=== PATIENT | female | born 1960 | race African-American/Black ===

== ENCOUNTER 2018-03-23 07:30 | Inpatient (IN) | payer OTHER ==
[2018-03-23] MEDS ORDERED: ACETYLCYSTEINE IV ×2 (07:39→08:00)
[2018-03-23] MEDS ORDERED: DEXTROSE 5% IV ×2 (07:39→08:00)
[2018-03-23] MEDS ORDERED: ACETYLCYSTEINE IVPB (08:00)
[2018-03-23] MEDS ORDERED: DEXTROSE 5% IVPB (08:00)
[2018-03-23 08:04] LABS: ADD MAN DIFF? NO
[2018-03-23 08:05] LABS: BASOPHIL # 0.1 10^3/ul (0.0-0.1); BASOPHILS % 0.9 % (0.0-2.0); EOSINOPHILS # 0.1 10^3/ul (0.0-0.5); EOSINOPHILS % 0.8 % (0.0-7.0); HEMATOCRIT 37.9 % (37.0-47.0); HEMOGLOBIN 12.6 g/dl (12.0-16.0); LYMPHOCYTES # 2.6 10^3/ul (0.8-2.9); LYMPHOCYTES % 32.5 % (15.0-51.0); MEAN CORPUSCULAR HEMOGLOBIN 27.3 pg (29.0-33.0); MEAN CORPUSCULAR HGB CONC 33.2 g/dl (32.0-37.0); MEAN PLATELET VOLUME 9.7 fl (7.4-10.4); MONOCYTE # 0.4 10^3/ul (0.3-0.9); MONOCYTES % 4.4 % (0.0-11.0); NEUTROPHIL # 4.9 10^3/ul (1.6-7.5); NEUTROPHILS % 60.9 % (39.0-77.0); PLATELET COUNT 331 10^3/UL (140-415); RED BLOOD COUNT 4.62 10^6/ul (4.20-5.40); RED CELL DISTRIBUTION WIDTH 14.7 % (11.5-14.5)
[2018-03-23] MEDS: CHARCOAL (AQ) 50 GM/240 ML BTL PO (08:08)
[2018-03-23] MEDS: ONDANSETRON 4 MG INJ IV (08:08)
[2018-03-23 08:24] LABS: ALANINE AMINOTRANSFERASE 45 IU/L (13-69); ALBUMIN 5.3 g/dl (3.3-4.9); ALBUMIN/GLOBULIN RATIO 0.98; ALKALINE PHOSPHATASE 100 IU/L (42-121); ANION GAP 19 (8-16); ASPARTATE AMINO TRANSFERASE 31 IU/L (15-46); BILIRUBIN,INDIRECT 0.3 mg/dl (0-1.1); BILIRUBIN,TOTAL 0.3 mg/dl (0.2-1.3); BLOOD UREA NITROGEN 14 mg/dl (7-20); CALCIUM 10.5 mg/dl (8.4-10.2); CARBON DIOXIDE 22 mmol/L (21-31); CHLORIDE 97 mmol/L (97-110); CREATININE 0.81 mg/dl (0.44-1.00); GLUCOSE 240 mg/dl (70-220); POTASSIUM 3.7 mmol/L (3.5-5.1); SODIUM 134 mmol/L (135-144); TOTAL PROTEIN 10.7 g/dl (6.1-8.1)
[2018-03-23] MEDS: KETOROLAC 15 MG INJ IV (08:31)
[2018-03-23] MEDS: ACETYLCYSTEINE IV ×3 (08:44→14:50)
[2018-03-23] MEDS: DEXTROSE 5% IV ×3 (08:44→14:50)
[2018-03-23 08:47] LABS: ETHANOL < 10.0 mg/dl; SALICYLATE < 1.0 mg/dl (5.0-30.0)
[2018-03-23] MEDS ORDERED: NACL 0.9% 3 ML SYG IV (11:00)
[2018-03-23] MEDS: CLOPIDOGREL 75 MG TAB PO (11:27)
[2018-03-23] MEDS: morphine 2 MG INJ IV (11:28)
[2018-03-23] MEDS ORDERED: GLUCOSE GEL 15 GRAM TUBE PO ×2 (16:00)
[2018-03-23] MEDS ORDERED: GLUCAGON 1 MG INJ IM (16:00)
[2018-03-23] MEDS ORDERED: DEXTROSE 50% 50 ML SYRINGE IV ×2 (16:00)
[2018-03-23] MEDS ORDERED: GLUCOSE GEL 15 GRAM TUBE BUCCAL (16:00)
[2018-03-23] MEDS ORDERED: CALCIUM CARBONATE 500 MG CHEW TAB PO ×2 (18:00)
[2018-03-23] MEDS: INSULIN ASPART [NOVOLOG] 3 ML PEN SC (18:12)
[2018-03-23 18:35] LABS: ALANINE AMINOTRANSFERASE 25 IU/L (13-69); ALBUMIN 4.1 g/dl (3.3-4.9); ALBUMIN/GLOBULIN RATIO 1.24; ALKALINE PHOSPHATASE 41 IU/L (42-121); ANION GAP 18 (8-16); ASPARTATE AMINO TRANSFERASE 17 IU/L (15-46); BILIRUBIN,INDIRECT 0.4 mg/dl (0-1.1); BILIRUBIN,TOTAL 0.4 mg/dl (0.2-1.3); BLOOD UREA NITROGEN 16 mg/dl (7-20); CALCIUM 9.4 mg/dl (8.4-10.2); CARBON DIOXIDE 21 mmol/L (21-31); CHLORIDE 95 mmol/L (97-110); CREATININE 0.97 mg/dl (0.44-1.00); GLUCOSE 208 mg/dl (70-220); INR 1.03; POTASSIUM 3.3 mmol/L (3.5-5.1); PROTIME 13.6 Sec (11.9-14.9); PT RATIO 1.1; SODIUM 131 mmol/L (135-144); TOTAL PROTEIN 7.4 g/dl (6.1-8.1)
[2018-03-23 18:40] LABS: ACETAMINOPHEN < 10.0 ug/ml (10.0-30.0)
[2018-03-23] MEDS: SOD CHLORIDE 0.9% 1,000 ML IV (19:38)
[2018-03-23] MEDS: METOPROLOL 25 MG TAB PO (20:46)
[2018-03-23] MEDS: SUMATRIPTAN 50 MG TAB PO (20:46)
[2018-03-23] MEDS: ATORVASTATIN 80 MG TAB PO (20:46)
[2018-03-24] MEDS: SUMATRIPTAN 50 MG TAB PO ×3 (01:15→08:54)
[2018-03-24] MEDS: morphine 2 MG INJ IV (04:32)
[2018-03-24 05:30] LABS: ADD MAN DIFF? NO
[2018-03-24 05:37] LABS: WHITE BLOOD COUNT 6.9 10^3/ul (4.8-10.8)
[2018-03-24 05:37] LABS: BASOPHIL # 0.1 10^3/ul (0.0-0.1); BASOPHILS % 0.7 % (0.0-2.0); EOSINOPHILS # 0.1 10^3/ul (0.0-0.5); EOSINOPHILS % 1.3 % (0.0-7.0); HEMATOCRIT 29.6 % (37.0-47.0); HEMOGLOBIN 9.9 g/dl (12.0-16.0); LYMPHOCYTES # 2.7 10^3/ul (0.8-2.9); MEAN CORPUSCULAR HEMOGLOBIN 26.8 pg (29.0-33.0); MEAN CORPUSCULAR HGB CONC 33.4 g/dl (32.0-37.0); MEAN CORPUSCULAR VOLUME 80.2 fl (82.0-101.0); MEAN PLATELET VOLUME 9.9 fl (7.4-10.4); MONOCYTE # 0.6 10^3/ul (0.3-0.9); MONOCYTES % 8.6 % (0.0-11.0); NEUTROPHIL # 3.4 10^3/ul (1.6-7.5); PLATELET COUNT 261 10^3/UL (140-415); RED BLOOD COUNT 3.69 10^6/ul (4.20-5.40); RED CELL DISTRIBUTION WIDTH 14.6 % (11.5-14.5)
[2018-03-24 05:46] LABS: HEMOGLOBIN A1C 7.6 % (0-5.9)
[2018-03-24 05:53] LABS: ALANINE AMINOTRANSFERASE 30 IU/L (13-69); ALBUMIN 3.9 g/dl (3.3-4.9); ALBUMIN/GLOBULIN RATIO 1.21; ALKALINE PHOSPHATASE 45 IU/L (42-121); ANION GAP 17 (8-16); ASPARTATE AMINO TRANSFERASE 27 IU/L (15-46); BILIRUBIN,INDIRECT 0.4 mg/dl (0-1.1); BILIRUBIN,TOTAL 0.4 mg/dl (0.2-1.3); BLOOD UREA NITROGEN 17 mg/dl (7-20); CALCIUM 9.5 mg/dl (8.4-10.2); CARBON DIOXIDE 21 mmol/L (21-31); CHLORIDE 100 mmol/L (97-110); GLUCOSE 183 mg/dl (70-220); POTASSIUM 3.4 mmol/L (3.5-5.1); SODIUM 135 mmol/L (135-144); TOTAL PROTEIN 7.1 g/dl (6.1-8.1)
[2018-03-24 05:54] LABS: INR 0.99; PROTIME 13.2 Sec (11.9-14.9)
[2018-03-24] MEDS: INSULIN ASPART [NOVOLOG] 3 ML PEN SC ×3 (08:12→12:43)
[2018-03-24] MEDS: CLOPIDOGREL 75 MG TAB PO (08:54)
[2018-03-24] MEDS: METOPROLOL 25 MG TAB PO (09:00)
[2018-03-24] MEDS: ENOXAPARIN 30 MG/0.3 ML SYG SC (09:17)
[2018-03-25] MEDS ORDERED: ACCU-CHEK XX (02:00)
== END 2018-03-24 14:27 | disposition home or self-care (01) | DRG 918 ==
LOC: E/R 07:30 → ICU 12:32
PROVIDERS: Internal Medicine
DX: T39.1X1A Poisoning by 4-Aminophenol derivatives, accidental (unintentional), initial encounter (principal); G43.909 Migraine, unspecified, not intractable, without status migrainosus; I25.10 Atherosclerotic heart disease of native coronary artery without angina pectoris; F17.210 Nicotine dependence, cigarettes, uncomplicated; I10 Essential (primary) hypertension; E78.5 Hyperlipidemia, unspecified; E11.9 Type 2 diabetes mellitus without complications; F32.9 Major depressive disorder, single episode, unspecified; Y92.019 Unspecified place in single-family (private) house as the place of occurrence of the external cause; Z79.4 Long term (current) use of insulin; Z95.5 Presence of coronary angioplasty implant and graft; Z86.73 Personal history of transient ischemic attack (TIA), and cerebral infarction without residual deficits
CPT/HCPCS: 36415; 70450; 71045; 80053; 80307; 82962; 83036; 85025; 85610; 87081; 93005; 96365; 96366; 96375; 99291-25

== ENCOUNTER 2018-07-03 14:29 | Inpatient (IN) | payer OTHER ==
[2018-07-03] MEDS: SOD CHLORIDE 0.9% 1,000 ML IV ×2 (15:30→21:19)
[2018-07-03 15:32] LABS: ADD MAN DIFF? NO
[2018-07-03 15:35] LABS: WHITE BLOOD COUNT 8.9 10^3/ul (4.8-10.8)
[2018-07-03 15:35] LABS: BASOPHIL # 0.1 10^3/ul (0.0-0.1); BASOPHILS % 0.6 % (0.0-2.0); EOSINOPHILS % 0.3 % (0.0-7.0); HEMATOCRIT 35.4 % (37.0-47.0); HEMOGLOBIN 11.7 g/dl (12.0-16.0); LYMPHOCYTES # 1.7 10^3/ul (0.8-2.9); LYMPHOCYTES % 19.1 % (15.0-51.0); MEAN CORPUSCULAR HEMOGLOBIN 27.1 pg (29.0-33.0); MEAN CORPUSCULAR HGB CONC 33.1 g/dl (32.0-37.0); MEAN CORPUSCULAR VOLUME 81.9 fl (82.0-101.0); MEAN PLATELET VOLUME 9.8 fl (7.4-10.4); MONOCYTES % 11.6 % (0.0-11.0); NEUTROPHIL # 6.1 10^3/ul (1.6-7.5); PLATELET COUNT 187 10^3/UL (140-415); RED BLOOD COUNT 4.32 10^6/ul (4.20-5.40)
[2018-07-03] MEDS: METOCLOPRAMIDE 10 MG INJ IV (15:50)
[2018-07-03] MEDS: KETOROLAC 30 MG INJ IV (15:50)
[2018-07-03 15:55] LABS: ANION GAP 15 (5-13); BLOOD UREA NITROGEN 23 mg/dl (7-20); CALCIUM 9.2 mg/dl (8.4-10.2); CARBON DIOXIDE 20 mmol/L (21-31); CHLORIDE 106 mmol/L (97-110); CREATININE 1.66 mg/dl (0.44-1.00); Estimated GFR 38 mL/min (>60); GLUCOSE 125 mg/dl (70-220); POTASSIUM 4.8 mmol/L (3.5-5.1); SODIUM 141 mmol/L (135-144)
[2018-07-03 16:07] LABS: TROPONIN-I 0.036 ng/ml (0.000-0.120)
[2018-07-03] MEDS ORDERED: ONDANSETRON 4 MG INJ IV ×2 (18:30)
[2018-07-03] MEDS ORDERED: NACL 0.9% 3 ML SYG IV (18:30)
[2018-07-03] MEDS ORDERED: ACETAMINOPHEN 325 MG TAB PO ×2 (18:30)
[2018-07-03] MEDS ORDERED: DOCUSATE SODIUM 100 MG CAP PO (18:30)
[2018-07-03] MEDS ORDERED: GLUCOSE GEL 15 GRAM TUBE BUCCAL (19:00)
[2018-07-03] MEDS ORDERED: DEXTROSE 50% 50 ML SYRINGE IV ×2 (19:00)
[2018-07-03] MEDS ORDERED: GLUCAGON 1 MG INJ IM (19:00)
[2018-07-03] MEDS ORDERED: GLUCOSE GEL 15 GRAM TUBE PO ×2 (19:00)
[2018-07-03] MEDS: INSULIN ASPART [NOVOLOG] 3 ML PEN SC (21:00)
[2018-07-03] MEDS: ATORVASTATIN 80 MG TAB PO (21:19)
[2018-07-03] MEDS: traZODone 50 MG TAB PO (21:19)
[2018-07-03] MEDS: GABAPENTIN 100 MG CAP PO (21:19)
[2018-07-03] MEDS: HYDROCODONE/APAP (5/325) TAB PO (21:19)
[2018-07-03] MEDS: METOPROLOL 25 MG TAB PO (21:20)
[2018-07-03] MEDS: INSULIN GLARGINE [LANTus] (100 UNITS/ML) SYG SC (21:50)
[2018-07-04] MEDS: ACCU-CHEK XX (02:06)
[2018-07-04] MEDS: SOD CHLORIDE 0.9% 1,000 ML IV ×5 (02:26→22:36)
[2018-07-04 06:41] LABS: ADD MAN DIFF? NO
[2018-07-04 06:43] LABS: BASOPHILS % 0.8 % (0.0-2.0); EOSINOPHILS # 0.1 10^3/ul (0.0-0.5); EOSINOPHILS % 2.4 % (0.0-7.0); HEMOGLOBIN 9.3 g/dl (12.0-16.0); LYMPHOCYTES # 2.3 10^3/ul (0.8-2.9); LYMPHOCYTES % 42.7 % (15.0-51.0); MEAN CORPUSCULAR HEMOGLOBIN 27.1 pg (29.0-33.0); MEAN CORPUSCULAR HGB CONC 32.1 g/dl (32.0-37.0); MEAN CORPUSCULAR VOLUME 84.5 fl (82.0-101.0); MEAN PLATELET VOLUME 10.2 fl (7.4-10.4); MONOCYTE # 0.6 10^3/ul (0.3-0.9); MONOCYTES % 11.7 % (0.0-11.0); NEUTROPHIL # 2.2 10^3/ul (1.6-7.5); PLATELET COUNT 135 10^3/UL (140-415); RED BLOOD COUNT 3.43 10^6/ul (4.20-5.40); RED CELL DISTRIBUTION WIDTH 13.1 % (11.5-14.5)
[2018-07-04 06:43] LABS: WHITE BLOOD COUNT 5.3 10^3/ul (4.8-10.8)
[2018-07-04 07:18] LABS: ANION GAP 10 (5-13); BLOOD UREA NITROGEN 34 mg/dl (7-20); CARBON DIOXIDE 21 mmol/L (21-31); CHLORIDE 109 mmol/L (97-110); CREATININE 1.72 mg/dl (0.44-1.00); Estimated GFR 37 mL/min (>60); GLUCOSE 186 mg/dl (70-220); MAGNESIUM 1.8 mg/dl (1.7-2.5); PHOSPHORUS 4.5 mg/dl (2.5-4.9); POTASSIUM 4.1 mmol/L (3.5-5.1); SODIUM 140 mmol/L (135-144)
[2018-07-04 07:20] LABS: HEMOGLOBIN A1C 7.6 % (0-5.9)
[2018-07-04] MEDS: INSULIN ASPART [NOVOLOG] 3 ML PEN SC ×7 (08:02→21:00)
[2018-07-04] MEDS: CLOPIDOGREL 75 MG TAB PO (08:43)
[2018-07-04] MEDS: METOPROLOL 25 MG TAB PO ×2 (08:43→21:16)
[2018-07-04] MEDS: SERTRALINE 50 MG TAB PO (08:43)
[2018-07-04] MEDS: HYDROCODONE/APAP (5/325) TAB PO ×3 (08:43→20:01)
[2018-07-04] MEDS: ASPIRIN (EC) 325 MG TAB PO (08:44)
[2018-07-04] MEDS: GABAPENTIN 100 MG CAP PO ×3 (08:44→21:14)
[2018-07-04] MEDS: INFLUENZA VIRUS VACCINE 0.5 ML (DISPENSING) IM* (10:32)
[2018-07-04] MEDS: morphine 2 MG INJ IV ×3 (11:51→22:38)
[2018-07-04 19:12] LABS: ADD UMIC NO; UR ASCORBIC ACID NEGATIVE (NEGATIVE); UR BILIRUBIN (Dip) NEGATIVE (NEGATIVE); UR BLOOD (Dip) NEGATIVE (NEGATIVE); UR CLARITY CLEAR (CLEAR); UR COLOR STRAW (YELLOW); UR GLUCOSE (Dip) NEGATIVE (NEGATIVE); UR KETONES (Dip) NEGATIVE (NEGATIVE); UR LEUKOCYTE ESTERASE (Dip) NEGATIVE Leu/ul (NEGATIVE); UR NITRITE (Dip) NEGATIVE (NEGATIVE); UR SPECIFIC GRAVITY (Dip) 1.011 (1.003-1.030); UR TOTAL PROTEIN (Dip) NEGATIVE (NEGATIVE); UR UROBILINOGEN (Dip) NEGATIVE (NEGATIVE)
[2018-07-04 19:29] LABS: CREATININE,URINE RANDOM 46.26 mg/dl (20-320)
[2018-07-04 19:29] LABS: SODIUM,URINE RANDOM 94 mmol/L (30-90)
[2018-07-04] MEDS: traZODone 50 MG TAB PO (20:00)
[2018-07-04] MEDS: ATORVASTATIN 80 MG TAB PO (21:14)
[2018-07-04] MEDS: ZOLPIDEM 5 MG TAB PO (21:19)
[2018-07-04] MEDS: INSULIN GLARGINE [LANTus] (100 UNITS/ML) SYG SC (21:20)
[2018-07-04] MEDS: SUMATRIPTAN 50 MG TAB PO (22:26)
[2018-07-05] MEDS: ACCU-CHEK XX (02:00)
[2018-07-05] MEDS: SOD CHLORIDE 0.9% 1,000 ML IV ×2 (02:26→05:46)
[2018-07-05 05:33] LABS: ADD MAN DIFF? NO
[2018-07-05 05:39] LABS: BASOPHIL # 0.1 10^3/ul (0.0-0.1); BASOPHILS % 0.7 % (0.0-2.0); EOSINOPHILS # 0.2 10^3/ul (0.0-0.5); EOSINOPHILS % 2.1 % (0.0-7.0); HEMATOCRIT 27.7 % (37.0-47.0); HEMOGLOBIN 9.1 g/dl (12.0-16.0); LYMPHOCYTES # 2.4 10^3/ul (0.8-2.9); LYMPHOCYTES % 25.8 % (15.0-51.0); MEAN CORPUSCULAR HEMOGLOBIN 27.3 pg (29.0-33.0); MEAN CORPUSCULAR HGB CONC 32.9 g/dl (32.0-37.0); MEAN CORPUSCULAR VOLUME 83.2 fl (82.0-101.0); MEAN PLATELET VOLUME 10.4 fl (7.4-10.4); MONOCYTE # 0.8 10^3/ul (0.3-0.9); MONOCYTES % 8.6 % (0.0-11.0); NEUTROPHIL # 5.7 10^3/ul (1.6-7.5); NEUTROPHILS % 62.1 % (39.0-77.0); PLATELET COUNT 140 10^3/UL (140-415); RED BLOOD COUNT 3.33 10^6/ul (4.20-5.40)
[2018-07-05 05:39] LABS: WHITE BLOOD COUNT 9.2 10^3/ul (4.8-10.8)
[2018-07-05] MEDS: SUMATRIPTAN 50 MG TAB PO (05:49)
[2018-07-05] MEDS: HYDROCODONE/APAP (5/325) TAB PO (05:50)
[2018-07-05 06:07] LABS: ANION GAP 9 (5-13); BLOOD UREA NITROGEN 22 mg/dl (7-20); CALCIUM 8.8 mg/dl (8.4-10.2); CARBON DIOXIDE 21 mmol/L (21-31); CHLORIDE 109 mmol/L (97-110); CREATININE 0.97 mg/dl (0.44-1.00); Estimated GFR > 60 mL/min (>60); GLUCOSE 130 mg/dl (70-220); MAGNESIUM 1.6 mg/dl (1.7-2.5); POTASSIUM 4.4 mmol/L (3.5-5.1); SODIUM 139 mmol/L (135-144)
[2018-07-05] MEDS: INSULIN ASPART [NOVOLOG] 3 ML PEN SC ×4 (07:50→12:52)
[2018-07-05] MEDS ORDERED: MAGNESIUM SULFATE 2 GM/50 ML 50 ML IVPB (08:00)
[2018-07-05] MEDS: ASPIRIN (EC) 325 MG TAB PO (08:52)
[2018-07-05] MEDS: GABAPENTIN 100 MG CAP PO ×2 (08:52→14:38)
[2018-07-05] MEDS: METOPROLOL 25 MG TAB PO (08:52)
[2018-07-05] MEDS: CLOPIDOGREL 75 MG TAB PO (08:53)
[2018-07-05] MEDS: SERTRALINE 50 MG TAB PO (08:53)
[2018-07-05] MEDS: morphine 2 MG INJ IV (09:55)
[2018-07-05] MEDS: MAGNESIUM OXIDE 400 MG TAB PO (11:23)
[2018-07-05] MEDS: MAGNESIUM SULFATE 1 GM/D5W 100 ML IVPB ×2 (11:24→12:50)
[2018-07-06 15:17] LABS: CREATININE, RANDOM URINE 47 mg/dL (20-275); MICROALBUMIN 0.2 mg/dL; MICROALBUMIN/CREATININE RATIO 4 (<30)
== END 2018-07-05 16:00 | disposition home or self-care (01) | DRG 315 ==
LOC: E/R 14:29 → TEL 18:06 → MS1 07-04 13:40
DX: I95.9 Hypotension, unspecified (principal); N17.9 Acute kidney failure, unspecified; E86.0 Dehydration; D63.8 Anemia in other chronic diseases classified elsewhere; Z86.73 Personal history of transient ischemic attack (TIA), and cerebral infarction without residual deficits; I10 Essential (primary) hypertension; F32.9 Major depressive disorder, single episode, unspecified
CPT/HCPCS: 36415; 71045; 76775; 80048; 81003; 82043; 82962; 83036; 83735; 84100; 84155; 84300; 84484; 85025; 90686; 93005; 96374; 96375; 99291-25; G0378

== ENCOUNTER 2018-07-07 14:32 | Inpatient (IN) | payer OTHER ==
[2018-07-07 15:08] LABS: ADD MAN DIFF? NO
[2018-07-07 15:09] LABS: BASOPHIL # 0.1 10^3/ul (0.0-0.1); BASOPHILS % 0.7 % (0.0-2.0); EOSINOPHILS # 0.1 10^3/ul (0.0-0.5); EOSINOPHILS % 1.6 % (0.0-7.0); HEMATOCRIT 34.3 % (37.0-47.0); HEMOGLOBIN 11.3 g/dl (12.0-16.0); LYMPHOCYTES % 34.4 % (15.0-51.0); MEAN CORPUSCULAR HEMOGLOBIN 27.1 pg (29.0-33.0); MEAN CORPUSCULAR HGB CONC 32.9 g/dl (32.0-37.0); MEAN CORPUSCULAR VOLUME 82.3 fl (82.0-101.0); MEAN PLATELET VOLUME 10.1 fl (7.4-10.4); MONOCYTE # 0.9 10^3/ul (0.3-0.9); MONOCYTES % 10.1 % (0.0-11.0); NEUTROPHIL # 4.5 10^3/ul (1.6-7.5); NEUTROPHILS % 52.7 % (39.0-77.0); PLATELET COUNT 203 10^3/UL (140-415); RED BLOOD COUNT 4.17 10^6/ul (4.20-5.40); RED CELL DISTRIBUTION WIDTH 12.9 % (11.5-14.5)
[2018-07-07 15:09] LABS: WHITE BLOOD COUNT 8.6 10^3/ul (4.8-10.8)
[2018-07-07] MEDS: SOD CHLORIDE 0.9% 1,000 ML IV ×2 (15:11→18:53)
[2018-07-07] MEDS ORDERED: DIPHENHYDRAMINE 50 MG INJ (15:24)
[2018-07-07] MEDS ORDERED: METOCLOPRAMIDE 10 MG INJ (15:24)
[2018-07-07] MEDS: DIPHENHYDRAMINE 50 MG INJ IV (15:26)
[2018-07-07] MEDS: METOCLOPRAMIDE 10 MG INJ IV (15:26)
[2018-07-07 15:33] LABS: ALANINE AMINOTRANSFERASE 12 IU/L (13-69); ALBUMIN 4.3 g/dl (3.3-4.9); ALBUMIN/GLOBULIN RATIO 1.22; ALKALINE PHOSPHATASE 72 IU/L (42-121); ANION GAP 17 (5-13); ASPARTATE AMINO TRANSFERASE 26 IU/L (15-46); BILIRUBIN,INDIRECT 0.3 mg/dl (0-1.1); BILIRUBIN,TOTAL 0.3 mg/dl (0.2-1.3); BLOOD UREA NITROGEN 21 mg/dl (7-20); CALCIUM 9.4 mg/dl (8.4-10.2); CARBON DIOXIDE 19 mmol/L (21-31); CHLORIDE 105 mmol/L (97-110); CREATININE 1.27 mg/dl (0.44-1.00); Estimated GFR 52 mL/min (>60); GLUCOSE 121 mg/dl (70-220); LIPASE 180 U/L (23-300); POTASSIUM 3.9 mmol/L (3.5-5.1); SODIUM 141 mmol/L (135-144); TOTAL PROTEIN 7.8 g/dl (6.1-8.1)
[2018-07-07 15:44] LABS: TROPONIN-I 0.016 ng/ml (0.000-0.120)
[2018-07-07] MEDS ORDERED: NITROGLYCERIN (SL) 0.4 MG TAB SL (18:30)
[2018-07-07] MEDS ORDERED: DOCUSATE SODIUM 100 MG CAP PO (18:30)
[2018-07-07] MEDS ORDERED: LORAZEPAM 2 MG INJ IV (18:30)
[2018-07-07] MEDS ORDERED: NACL 0.9% 3 ML SYG IV (18:30)
[2018-07-07] MEDS ORDERED: ALBUTEROL/IPRATROPIUM (NEB) 3 ML AMP HHN (18:30)
[2018-07-07] MEDS ORDERED: ACETAMINOPHEN 325 MG TAB PO ×2 (18:30)
[2018-07-07] MEDS ORDERED: NA PHOSPHATE/BIPHOS 133 ML ENEMA PR (18:30)
[2018-07-07] MEDS ORDERED: ONDANSETRON 4 MG INJ IV ×2 (18:30)
[2018-07-07] MEDS ORDERED: MAGNESIUM HYDROXIDE 30ML CUP PO (18:30)
[2018-07-07 18:48] LABS: FREE T4 (FREE THYROXINE) 1.23 ng/dl (0.64-1.79)
[2018-07-07] MEDS: morphine 2 MG INJ IV (18:53)
[2018-07-07] MEDS: traZODone 100 MG TAB PO (20:43)
[2018-07-07] MEDS: SERTRALINE 50 MG TAB PO (20:43)
[2018-07-07] MEDS: NICOTINE (14 MG/24 HR) PATCH TRANSDERM (20:43)
[2018-07-07] MEDS: ATORVASTATIN 80 MG TAB PO (20:43)
[2018-07-07] MEDS: METOPROLOL 25 MG TAB PO (20:44)
[2018-07-08] MEDS: HYDROCODONE/APAP (5/325) TAB PO ×4 (02:43→21:12)
[2018-07-08] MEDS: SOD CHLORIDE 0.9% 1,000 ML IV ×3 (05:12→21:11)
[2018-07-08 06:19] LABS: ADD MAN DIFF? NO
[2018-07-08 06:27] LABS: WHITE BLOOD COUNT 6.8 10^3/ul (4.8-10.8)
[2018-07-08 06:28] LABS: BASOPHIL # 0.1 10^3/ul (0.0-0.1); BASOPHILS % 0.7 % (0.0-2.0); EOSINOPHILS # 0.2 10^3/ul (0.0-0.5); EOSINOPHILS % 2.2 % (0.0-7.0); HEMOGLOBIN 9.3 g/dl (12.0-16.0); LYMPHOCYTES # 3.1 10^3/ul (0.8-2.9); LYMPHOCYTES % 45.6 % (15.0-51.0); MEAN CORPUSCULAR HGB CONC 32.1 g/dl (32.0-37.0); MEAN CORPUSCULAR VOLUME 84.1 fl (82.0-101.0); MEAN PLATELET VOLUME 10.3 fl (7.4-10.4); MONOCYTE # 0.9 10^3/ul (0.3-0.9); MONOCYTES % 12.6 % (0.0-11.0); NEUTROPHIL # 2.6 10^3/ul (1.6-7.5); NEUTROPHILS % 38.5 % (39.0-77.0); PLATELET COUNT 182 10^3/UL (140-415); RED BLOOD COUNT 3.45 10^6/ul (4.20-5.40)
[2018-07-08 06:52] LABS: CHOLESTEROL 146 mg/dl (100-200)
[2018-07-08 06:52] LABS: CHOL/HDL RATIO 4.1 RATIO; HDL CHOLESTEROL 35 mg/dl (37-92); LDL CHOLESTEROL,CALCULATED 84 mg/dl; TRIGLYCERIDES 135 mg/dl (0-149)
[2018-07-08 07:08] LABS: ANION GAP 9 (5-13); BLOOD UREA NITROGEN 27 mg/dl (7-20); CALCIUM 8.4 mg/dl (8.4-10.2); CARBON DIOXIDE 22 mmol/L (21-31); CHLORIDE 109 mmol/L (97-110); CREATININE 1.16 mg/dl (0.44-1.00); Estimated GFR 58 mL/min (>60); GLUCOSE 146 mg/dl (70-220); POTASSIUM 4.7 mmol/L (3.5-5.1); SODIUM 140 mmol/L (135-144)
[2018-07-08 07:25] LABS: HEMOGLOBIN A1C 7.5 % (0-5.9)
[2018-07-08] MEDS: SERTRALINE 50 MG TAB PO (08:44)
[2018-07-08] MEDS: NICOTINE (14 MG/24 HR) PATCH TRANSDERM (08:44)
[2018-07-08] MEDS: CLOPIDOGREL 75 MG TAB PO (08:44)
[2018-07-08] MEDS: ASPIRIN (EC) 325 MG TAB PO (08:44)
[2018-07-08] MEDS: METOPROLOL 25 MG TAB PO ×2 (08:45→21:04)
[2018-07-08] MEDS: morphine 2 MG INJ IV ×3 (10:01→18:32)
[2018-07-08] MEDS ORDERED: GLUCOSE GEL 15 GRAM TUBE BUCCAL (18:00)
[2018-07-08] MEDS ORDERED: GLUCOSE GEL 15 GRAM TUBE PO ×2 (18:00)
[2018-07-08] MEDS ORDERED: DEXTROSE 50% 50 ML SYRINGE IV ×2 (18:00)
[2018-07-08] MEDS ORDERED: GLUCAGON 1 MG INJ IM (18:00)
[2018-07-08] MEDS: INSULIN ASPART [NOVOLOG] 3 ML PEN SC ×2 (18:00→21:00)
[2018-07-08] MEDS: ATORVASTATIN 80 MG TAB PO (21:04)
[2018-07-08] MEDS: traZODone 100 MG TAB PO (21:11)
[2018-07-09] MEDS: morphine 2 MG INJ IV ×3 (01:40→11:36)
[2018-07-09] MEDS: HYDROCODONE/APAP (5/325) TAB PO ×2 (05:35→12:44)
[2018-07-09 07:14] LABS: ADD MAN DIFF? NO
[2018-07-09 07:19] LABS: WHITE BLOOD COUNT 6.2 10^3/ul (4.8-10.8)
[2018-07-09 07:19] LABS: BASOPHIL # 0.1 10^3/ul (0.0-0.1); BASOPHILS % 1.1 % (0.0-2.0); EOSINOPHILS # 0.2 10^3/ul (0.0-0.5); EOSINOPHILS % 3.2 % (0.0-7.0); HEMATOCRIT 29.2 % (37.0-47.0); HEMOGLOBIN 9.4 g/dl (12.0-16.0); LYMPHOCYTES % 48.3 % (15.0-51.0); MEAN CORPUSCULAR HEMOGLOBIN 27.3 pg (29.0-33.0); MEAN CORPUSCULAR HGB CONC 32.2 g/dl (32.0-37.0); MEAN CORPUSCULAR VOLUME 84.9 fl (82.0-101.0); MEAN PLATELET VOLUME 10.4 fl (7.4-10.4); MONOCYTE # 0.7 10^3/ul (0.3-0.9); NEUTROPHIL # 2.2 10^3/ul (1.6-7.5); NEUTROPHILS % 36.1 % (39.0-77.0); PLATELET COUNT 187 10^3/UL (140-415); RED BLOOD COUNT 3.44 10^6/ul (4.20-5.40)
[2018-07-09 07:40] LABS: ANION GAP 8 (5-13); BLOOD UREA NITROGEN 16 mg/dl (7-20); CALCIUM 8.7 mg/dl (8.4-10.2); CARBON DIOXIDE 23 mmol/L (21-31); CHLORIDE 112 mmol/L (97-110); CREATININE 0.81 mg/dl (0.44-1.00); Estimated GFR > 60 mL/min (>60); GLUCOSE 132 mg/dl (70-220); POTASSIUM 4.6 mmol/L (3.5-5.1); SODIUM 143 mmol/L (135-144)
[2018-07-09] MEDS: INSULIN ASPART [NOVOLOG] 3 ML PEN SC ×2 (08:00→12:00)
[2018-07-09] MEDS: CLOPIDOGREL 75 MG TAB PO (08:37)
[2018-07-09] MEDS: ASPIRIN (EC) 325 MG TAB PO (08:37)
[2018-07-09] MEDS: METOPROLOL 25 MG TAB PO (08:37)
[2018-07-09] MEDS: SERTRALINE 50 MG TAB PO (08:37)
[2018-07-09] MEDS: NICOTINE (14 MG/24 HR) PATCH TRANSDERM (08:39)
[2018-07-09] MEDS: SOD CHLORIDE 0.9% 1,000 ML IV (09:21)
[2018-07-09] MEDS ORDERED: IBUPROFEN 400 MG TAB PO ×2 (12:30→20:30)
[2018-07-09] MEDS: IBUPROFEN 400 MG TAB PO (15:39)
== END 2018-07-09 17:33 | disposition home or self-care (01) | DRG 641 ==
LOC: E/R 14:32 → 2NE 18:02
DX: E86.0 Dehydration (principal); N17.9 Acute kidney failure, unspecified; R11.2 Nausea with vomiting, unspecified; E11.9 Type 2 diabetes mellitus without complications; I10 Essential (primary) hypertension; Z86.73 Personal history of transient ischemic attack (TIA), and cerebral infarction without residual deficits; Z72.0 Tobacco use; Z95.5 Presence of coronary angioplasty implant and graft
CPT/HCPCS: 36415; 80048; 80053; 80061; 82962; 83036; 83690; 84439; 84443; 84484; 85025; 93005; 96374; 96375; 97161; 99285-25; G0378

== ENCOUNTER 2018-07-13 10:11 | Inpatient (IN) | payer OTHER ==
[2018-07-13] MEDS: SOD CHLORIDE 0.9% 1,000 ML IV ×2 (10:33→15:46)
[2018-07-13] MEDS: ONDANSETRON 4 MG INJ IV (10:33)
[2018-07-13] MEDS: morphine 4 MG/ML VIAL IV (10:33)
[2018-07-13 11:15] LABS: ADD MAN DIFF? NO
[2018-07-13 11:18] LABS: WHITE BLOOD COUNT 7.8 10^3/ul (4.8-10.8)
[2018-07-13 11:18] LABS: BASOPHIL # 0.1 10^3/ul (0.0-0.1); EOSINOPHILS # 0.1 10^3/ul (0.0-0.5); EOSINOPHILS % 1.7 % (0.0-7.0); HEMATOCRIT 35.4 % (37.0-47.0); HEMOGLOBIN 11.5 g/dl (12.0-16.0); LYMPHOCYTES # 2.4 10^3/ul (0.8-2.9); LYMPHOCYTES % 31.3 % (15.0-51.0); MEAN CORPUSCULAR HEMOGLOBIN 27.3 pg (29.0-33.0); MEAN CORPUSCULAR HGB CONC 32.5 g/dl (32.0-37.0); MEAN CORPUSCULAR VOLUME 83.9 fl (82.0-101.0); MEAN PLATELET VOLUME 10.1 fl (7.4-10.4); MONOCYTE # 0.8 10^3/ul (0.3-0.9); MONOCYTES % 10.3 % (0.0-11.0); NEUTROPHIL # 4.3 10^3/ul (1.6-7.5); NEUTROPHILS % 55.1 % (39.0-77.0); PLATELET COUNT 321 10^3/UL (140-415); RED BLOOD COUNT 4.22 10^6/ul (4.20-5.40); RED CELL DISTRIBUTION WIDTH 13.4 % (11.5-14.5)
[2018-07-13 11:44] LABS: ALANINE AMINOTRANSFERASE 19 IU/L (13-69); ALBUMIN 4.3 g/dl (3.3-4.9); ALBUMIN/GLOBULIN RATIO 1.26; ALKALINE PHOSPHATASE 76 IU/L (42-121); ANION GAP 15 (5-13); ASPARTATE AMINO TRANSFERASE 26 IU/L (15-46); BILIRUBIN,INDIRECT 0.4 mg/dl (0-1.1); BILIRUBIN,TOTAL 0.4 mg/dl (0.2-1.3); BLOOD UREA NITROGEN 33 mg/dl (7-20); CALCIUM 9.7 mg/dl (8.4-10.2); CARBON DIOXIDE 26 mmol/L (21-31); CHLORIDE 101 mmol/L (97-110); CREATININE 1.78 mg/dl (0.44-1.00); Estimated GFR 35 mL/min (>60); GLUCOSE 224 mg/dl (70-220); LIPASE 102 U/L (23-300); POTASSIUM 4.8 mmol/L (3.5-5.1); SODIUM 142 mmol/L (135-144); TOTAL PROTEIN 7.7 g/dl (6.1-8.1)
[2018-07-13 11:46] LABS: TROPONIN-I 0.019 ng/ml (0.000-0.120)
[2018-07-13] MEDS ORDERED: ACETAMINOPHEN 325 MG TAB PO (13:00)
[2018-07-13] MEDS ORDERED: ONDANSETRON 4 MG INJ IV ×2 (13:00→14:00)
[2018-07-13] MEDS ORDERED: GLUCOSE GEL 15 GRAM TUBE BUCCAL (14:00)
[2018-07-13] MEDS ORDERED: DEXTROSE 50% 50 ML SYRINGE IV ×2 (14:00)
[2018-07-13] MEDS ORDERED: GLUCOSE GEL 15 GRAM TUBE PO ×2 (14:00)
[2018-07-13] MEDS ORDERED: NACL 0.9% 3 ML SYG IV (14:00)
[2018-07-13] MEDS ORDERED: GLUCAGON 1 MG INJ IM (14:00)
[2018-07-13] MEDS: SOD CHLORIDE 0.9% 500 ML IV (14:43)
[2018-07-13] MEDS: HYDROCODONE/APAP (5/325) TAB PO ×2 (14:55→19:54)
[2018-07-13 16:12] LABS: CREATINE KINASE 49 IU/L (23-200)
[2018-07-13 16:25] LABS: CK INDEX 2.1; CK-MB 1.01 ng/ml (0.0-2.4); TROPONIN-I 0.017 ng/ml (0.000-0.120)
[2018-07-13] MEDS: ACETAMINOPHEN 325 MG TAB PO (17:33)
[2018-07-13] MEDS: INSULIN ASPART [NOVOLOG] 3 ML PEN SC ×2 (17:47→20:50)
[2018-07-13] MEDS: INSULIN GLARGINE [LANTus] (100 UNITS/ML) SYG SC (19:57)
[2018-07-13] MEDS: traZODone 100 MG TAB PO (20:48)
[2018-07-13] MEDS: GABAPENTIN 100 MG CAP PO (20:48)
[2018-07-13] MEDS: METOPROLOL 25 MG TAB PO (20:50)
[2018-07-13] MEDS: ATORVASTATIN 80 MG TAB PO (20:51)
[2018-07-13] MEDS: morphine 2 MG INJ IV (22:01)
[2018-07-13 22:50] LABS: CREATINE KINASE 53 IU/L (23-200)
[2018-07-13 23:02] LABS: CK INDEX 2.1; CK-MB 1.12 ng/ml (0.0-2.4); TROPONIN-I 0.021 ng/ml (0.000-0.120)
[2018-07-14] MEDS: ACCU-CHEK XX (02:00)
[2018-07-14] MEDS: HYDROCODONE/APAP (10/325) TAB PO ×4 (04:05→22:44)
[2018-07-14] MEDS: SOD CHLORIDE 0.9% 1,000 ML IV ×2 (04:06→17:31)
[2018-07-14] MEDS: INSULIN ASPART [NOVOLOG] 3 ML PEN SC ×4 (08:43→20:57)
[2018-07-14] MEDS: GABAPENTIN 100 MG CAP PO ×2 (08:45→20:39)
[2018-07-14] MEDS: SERTRALINE 50 MG TAB PO (08:45)
[2018-07-14] MEDS: ASPIRIN (EC) 325 MG TAB PO (08:45)
[2018-07-14] MEDS: CLOPIDOGREL 75 MG TAB PO (08:45)
[2018-07-14] MEDS: METOPROLOL 25 MG TAB PO ×2 (08:46→20:51)
[2018-07-14] MEDS: NICOTINE (21 MG/24 HR) PATCH TRANSDERM (08:47)
[2018-07-14 09:37] LABS: ADD MAN DIFF? NO
[2018-07-14 09:39] LABS: BASOPHILS % 0.7 % (0.0-2.0); EOSINOPHILS # 0.1 10^3/ul (0.0-0.5); EOSINOPHILS % 1.8 % (0.0-7.0); HEMATOCRIT 28.2 % (37.0-47.0); HEMOGLOBIN 9.1 g/dl (12.0-16.0); LYMPHOCYTES # 2.3 10^3/ul (0.8-2.9); MEAN CORPUSCULAR HEMOGLOBIN 27.4 pg (29.0-33.0); MEAN CORPUSCULAR HGB CONC 32.3 g/dl (32.0-37.0); MEAN CORPUSCULAR VOLUME 84.9 fl (82.0-101.0); MEAN PLATELET VOLUME 9.8 fl (7.4-10.4); MONOCYTE # 0.6 10^3/ul (0.3-0.9); MONOCYTES % 9.8 % (0.0-11.0); NEUTROPHIL # 2.9 10^3/ul (1.6-7.5); NEUTROPHILS % 48.4 % (39.0-77.0); PLATELET COUNT 245 10^3/UL (140-415); RED BLOOD COUNT 3.32 10^6/ul (4.20-5.40); RED CELL DISTRIBUTION WIDTH 13.2 % (11.5-14.5)
[2018-07-14 09:55] LABS: HEMOGLOBIN A1C 7.3 % (0-5.9)
[2018-07-14 09:56] LABS: ALANINE AMINOTRANSFERASE 20 IU/L (13-69); ALBUMIN 3.3 g/dl (3.3-4.9); ALBUMIN/GLOBULIN RATIO 1.17; ALKALINE PHOSPHATASE 62 IU/L (42-121); ANION GAP 8 (5-13); ASPARTATE AMINO TRANSFERASE 20 IU/L (15-46); BILIRUBIN,INDIRECT 0.3 mg/dl (0-1.1); BILIRUBIN,TOTAL 0.3 mg/dl (0.2-1.3); BLOOD UREA NITROGEN 19 mg/dl (7-20); CALCIUM 8.6 mg/dl (8.4-10.2); CARBON DIOXIDE 20 mmol/L (21-31); CHLORIDE 111 mmol/L (97-110); CHOL/HDL RATIO 4.2 RATIO; CHOLESTEROL 122 mg/dl (100-200); CREATININE 0.99 mg/dl (0.44-1.00); Estimated GFR > 60 mL/min (>60); GLUCOSE 148 mg/dl (70-220); HDL CHOLESTEROL 29 mg/dl (37-92); LDL CHOLESTEROL,CALCULATED 71 mg/dl; MAGNESIUM 1.6 mg/dl (1.7-2.5); PHOSPHORUS 3.2 mg/dl (2.5-4.9); POTASSIUM 4.7 mmol/L (3.5-5.1); SODIUM 139 mmol/L (135-144); TOTAL PROTEIN 6.1 g/dl (6.1-8.1); TRIGLYCERIDES 110 mg/dl (0-149)
[2018-07-14 11:56] LABS: ADD UMIC NO; UR ASCORBIC ACID NEGATIVE (NEGATIVE); UR BILIRUBIN (Dip) NEGATIVE (NEGATIVE); UR BLOOD (Dip) NEGATIVE (NEGATIVE); UR CLARITY CLEAR (CLEAR); UR COLOR STRAW (YELLOW); UR GLUCOSE (Dip) NEGATIVE (NEGATIVE); UR KETONES (Dip) NEGATIVE (NEGATIVE); UR LEUKOCYTE ESTERASE (Dip) NEGATIVE Leu/ul (NEGATIVE); UR NITRITE (Dip) NEGATIVE (NEGATIVE); UR SPECIFIC GRAVITY (Dip) 1.008 (1.003-1.030); UR TOTAL PROTEIN (Dip) NEGATIVE (NEGATIVE); UR UROBILINOGEN (Dip) NEGATIVE (NEGATIVE)
[2018-07-14] MEDS: morphine 2 MG INJ IV ×2 (12:45→20:51)
[2018-07-14] MEDS: FOSFOMYCIN 3 GM PACKET PO (13:39)
[2018-07-14] MEDS: ATORVASTATIN 80 MG TAB PO (20:39)
[2018-07-14] MEDS: traZODone 100 MG TAB PO (20:39)
[2018-07-14] MEDS: INSULIN GLARGINE [LANTus] (100 UNITS/ML) SYG SC (20:40)
[2018-07-15] MEDS: ACCU-CHEK XX (02:00)
[2018-07-15] MEDS: SOD CHLORIDE 0.9% 1,000 ML IV (05:28)
[2018-07-15] MEDS: HYDROCODONE/APAP (10/325) TAB PO ×2 (07:50→17:49)
[2018-07-15] MEDS: INSULIN ASPART [NOVOLOG] 3 ML PEN SC ×3 (07:57→17:50)
[2018-07-15] MEDS: ASPIRIN (EC) 325 MG TAB PO (09:23)
[2018-07-15] MEDS: METOPROLOL 25 MG TAB PO (09:24)
[2018-07-15] MEDS: GABAPENTIN 100 MG CAP PO (09:25)
[2018-07-15] MEDS: SERTRALINE 50 MG TAB PO (09:25)
[2018-07-15] MEDS: CLOPIDOGREL 75 MG TAB PO (09:25)
[2018-07-15] MEDS: NICOTINE (21 MG/24 HR) PATCH TRANSDERM (09:26)
[2018-07-15 10:23] LABS: ADD MAN DIFF? NO
[2018-07-15 10:30] LABS: WHITE BLOOD COUNT 5.7 10^3/ul (4.8-10.8)
[2018-07-15 10:30] LABS: BASOPHIL # 0.1 10^3/ul (0.0-0.1); BASOPHILS % 1.1 % (0.0-2.0); EOSINOPHILS # 0.2 10^3/ul (0.0-0.5); EOSINOPHILS % 3.9 % (0.0-7.0); HEMATOCRIT 31.4 % (37.0-47.0); HEMOGLOBIN 9.8 g/dl (12.0-16.0); LYMPHOCYTES # 2.5 10^3/ul (0.8-2.9); LYMPHOCYTES % 43.4 % (15.0-51.0); MEAN CORPUSCULAR HEMOGLOBIN 26.8 pg (29.0-33.0); MEAN CORPUSCULAR HGB CONC 31.2 g/dl (32.0-37.0); MEAN CORPUSCULAR VOLUME 85.8 fl (82.0-101.0); MEAN PLATELET VOLUME 9.8 fl (7.4-10.4); MONOCYTE # 0.6 10^3/ul (0.3-0.9); MONOCYTES % 9.9 % (0.0-11.0); NEUTROPHIL # 2.4 10^3/ul (1.6-7.5); NEUTROPHILS % 41.5 % (39.0-77.0); PLATELET COUNT 284 10^3/UL (140-415); RED BLOOD COUNT 3.66 10^6/ul (4.20-5.40); RED CELL DISTRIBUTION WIDTH 13.3 % (11.5-14.5)
[2018-07-15 10:55] LABS: ANION GAP 11 (5-13); BLOOD UREA NITROGEN 10 mg/dl (7-20); CALCIUM 8.9 mg/dl (8.4-10.2); CARBON DIOXIDE 22 mmol/L (21-31); CHLORIDE 110 mmol/L (97-110); CREATININE 0.74 mg/dl (0.44-1.00); Estimated GFR > 60 mL/min (>60); GLUCOSE 159 mg/dl (70-220); POTASSIUM 4.1 mmol/L (3.5-5.1); SODIUM 143 mmol/L (135-144)
[2018-07-15] MEDS: morphine 2 MG INJ IV (11:56)
[2018-07-15] MEDS ORDERED: IODIXANOL LOCM 100 ML BTL (17:07)
[2018-07-15] MEDS ORDERED: SOD CHLORIDE 0.9% 100 ML (17:07)
== END 2018-07-15 20:25 | disposition left against medical advice (07) | DRG 684 ==
LOC: E/R 10:11 → PP2 12:50
DX: N17.9 Acute kidney failure, unspecified (principal); E11.9 Type 2 diabetes mellitus without complications; Z86.73 Personal history of transient ischemic attack (TIA), and cerebral infarction without residual deficits; I10 Essential (primary) hypertension; I25.10 Atherosclerotic heart disease of native coronary artery without angina pectoris; Z95.5 Presence of coronary angioplasty implant and graft; D64.9 Anemia, unspecified; F17.200 Nicotine dependence, unspecified, uncomplicated; R42 Dizziness and giddiness; E86.0 Dehydration; I65.21 Occlusion and stenosis of right carotid artery
CPT/HCPCS: 36415; 70450; 70498; 73060; 74176; 80048; 80053; 80061; 81003; 82550; 82553; 82962; 83036; 83690; 83735; 84100; 84484; 85025; 87081; 87086; 93005; 93306; 93880; 96361; 96374; 96375; 99285-25

== ENCOUNTER 2018-07-18 14:04 | Emergency (ER) | payer OTHER ==
[2018-07-18] MEDS: SOD CHLORIDE 0.9% 1,000 ML IV (16:50)
[2018-07-18] MEDS: HYDROCODONE/APAP (5/325) TAB PO (16:51)
== END 2018-07-18 17:11 | disposition home or self-care (01) ==
LOC: E/R 14:04
DX: G89.29 Other chronic pain (principal); E11.9 Type 2 diabetes mellitus without complications; I10 Essential (primary) hypertension; Z79.01 Long term (current) use of anticoagulants; Z79.82 Long term (current) use of aspirin; Z86.73 Personal history of transient ischemic attack (TIA), and cerebral infarction without residual deficits; Z87.891 Personal history of nicotine dependence
CPT/HCPCS: 99284-25; J7030

== ENCOUNTER 2018-07-19 15:35 | Emergency (ER) | payer OTHER ==
[2018-07-19 15:54] LABS: ADD MAN DIFF? NO
[2018-07-19] MEDS: ONDANSETRON 4 MG INJ IV (15:56)
[2018-07-19] MEDS: SOD CHLORIDE 0.9% 1,000 ML IV (15:56)
[2018-07-19] MEDS: morphine 4 MG/ML VIAL IV (15:56)
[2018-07-19 16:02] LABS: BASOPHIL # 0.1 10^3/ul (0.0-0.1); BASOPHILS % 1.2 % (0.0-2.0); EOSINOPHILS # 0.2 10^3/ul (0.0-0.5); EOSINOPHILS % 2.3 % (0.0-7.0); HEMATOCRIT 29.7 % (37.0-47.0); HEMOGLOBIN 9.6 g/dl (12.0-16.0); LYMPHOCYTES # 2.7 10^3/ul (0.8-2.9); LYMPHOCYTES % 40.6 % (15.0-51.0); MEAN CORPUSCULAR HEMOGLOBIN 26.7 pg (29.0-33.0); MEAN CORPUSCULAR HGB CONC 32.3 g/dl (32.0-37.0); MEAN CORPUSCULAR VOLUME 82.7 fl (82.0-101.0); MEAN PLATELET VOLUME 9.9 fl (7.4-10.4); MONOCYTE # 0.4 10^3/ul (0.3-0.9); MONOCYTES % 6.7 % (0.0-11.0); NEUTROPHIL # 3.2 10^3/ul (1.6-7.5); NEUTROPHILS % 48.9 % (39.0-77.0); PLATELET COUNT 300 10^3/UL (140-415); RED BLOOD COUNT 3.59 10^6/ul (4.20-5.40); RED CELL DISTRIBUTION WIDTH 13.2 % (11.5-14.5)
[2018-07-19 16:02] LABS: WHITE BLOOD COUNT 6.5 10^3/ul (4.8-10.8)
[2018-07-19 16:20] LABS: ALANINE AMINOTRANSFERASE 24 IU/L (13-69); ALBUMIN/GLOBULIN RATIO 1.33; ALKALINE PHOSPHATASE 60 IU/L (42-121); ANION GAP 12 (5-13); ASPARTATE AMINO TRANSFERASE 27 IU/L (15-46); BLOOD UREA NITROGEN 16 mg/dl (7-20); CALCIUM 9.2 mg/dl (8.4-10.2); CARBON DIOXIDE 21 mmol/L (21-31); CHLORIDE 107 mmol/L (97-110); CREATININE 1.37 mg/dl (0.44-1.00); Estimated GFR 48 mL/min (>60); GLUCOSE 114 mg/dl (70-220); LIPASE 129 U/L (23-300); POTASSIUM 4.2 mmol/L (3.5-5.1); SODIUM 140 mmol/L (135-144)
[2018-07-19 16:30] LABS: TROPONIN-I < 0.012 ng/ml (0.000-0.120)
== END 2018-07-19 18:50 | disposition home or self-care (01) ==
LOC: E/R 15:35
DX: F10.920 Alcohol use, unspecified with intoxication, uncomplicated (principal); R53.1 Weakness; I10 Essential (primary) hypertension; E11.9 Type 2 diabetes mellitus without complications; F17.210 Nicotine dependence, cigarettes, uncomplicated; R40.2252 Coma scale, best verbal response, oriented, at arrival to emergency department; R40.2362 Coma scale, best motor response, obeys commands, at arrival to emergency department; R40.2142 Coma scale, eyes open, spontaneous, at arrival to emergency department; Z79.82 Long term (current) use of aspirin; Z79.01 Long term (current) use of anticoagulants
CPT/HCPCS: 36415; 80053; 80307; 83690; 84484; 85025; 93005; 96374; 96375; 99284-25

== ENCOUNTER 2018-07-29 15:05 | Emergency (ER) | payer OTHER ==
[2018-07-29] MEDS: ACETAMINOPHEN 325 MG TAB PO (15:24)
[2018-07-29] MEDS: SOD CHLORIDE 0.9% 1,000 ML IV (15:26)
[2018-07-29 15:40] LABS: ADD MAN DIFF? NO
[2018-07-29 15:46] LABS: WHITE BLOOD COUNT 8.2 10^3/ul (4.8-10.8)
[2018-07-29 15:46] LABS: BASOPHIL # 0.1 10^3/ul (0.0-0.1); EOSINOPHILS # 0.2 10^3/ul (0.0-0.5); EOSINOPHILS % 2.8 % (0.0-7.0); HEMATOCRIT 34.3 % (37.0-47.0); HEMOGLOBIN 11.1 g/dl (12.0-16.0); LYMPHOCYTES # 3.2 10^3/ul (0.8-2.9); LYMPHOCYTES % 38.9 % (15.0-51.0); MEAN CORPUSCULAR HEMOGLOBIN 26.9 pg (29.0-33.0); MEAN CORPUSCULAR HGB CONC 32.4 g/dl (32.0-37.0); MEAN CORPUSCULAR VOLUME 83.1 fl (82.0-101.0); MONOCYTE # 0.9 10^3/ul (0.3-0.9); MONOCYTES % 10.6 % (0.0-11.0); NEUTROPHIL # 3.8 10^3/ul (1.6-7.5); NEUTROPHILS % 46.5 % (39.0-77.0); PLATELET COUNT 234 10^3/UL (140-415); RED BLOOD COUNT 4.13 10^6/ul (4.20-5.40); RED CELL DISTRIBUTION WIDTH 13.8 % (11.5-14.5)
[2018-07-29 16:05] LABS: ANION GAP 16 (5-13); BLOOD UREA NITROGEN 20 mg/dl (7-20); CALCIUM 10.2 mg/dl (8.4-10.2); CARBON DIOXIDE 18 mmol/L (21-31); CHLORIDE 107 mmol/L (97-110); CREATININE 1.86 mg/dl (0.44-1.00); Estimated GFR 34 mL/min (>60); GLUCOSE 95 mg/dl (70-220); POTASSIUM 4.3 mmol/L (3.5-5.1); SODIUM 141 mmol/L (135-144)
[2018-07-29 16:14] LABS: TROPONIN-I 0.015 ng/ml (0.000-0.120)
== END 2018-07-29 17:10 | disposition home or self-care (01) ==
LOC: E/R 15:05
DX: E86.0 Dehydration (principal); E11.9 Type 2 diabetes mellitus without complications; Z79.01 Long term (current) use of anticoagulants; Z79.82 Long term (current) use of aspirin; Z86.73 Personal history of transient ischemic attack (TIA), and cerebral infarction without residual deficits; Z87.891 Personal history of nicotine dependence; Z98.61 Coronary angioplasty status
CPT/HCPCS: 36415; 71045; 80048; 80307; 83605; 84484; 85025; 85610; 85730; 87040; 93005; 99285-25

== ENCOUNTER 2018-08-17 11:06 | Emergency (ER) | payer OTHER ==
[2018-08-17] MEDS: SOD CHLORIDE 0.9% 1,000 ML IV ×2 (12:28→13:30)
[2018-08-17] MEDS: ACETAMINOPHEN 325 MG TAB PO (12:28)
[2018-08-17 12:32] LABS: ADD MAN DIFF? NO
[2018-08-17 12:37] LABS: BASOPHIL # 0.1 10^3/ul (0.0-0.1); BASOPHILS % 0.7 % (0.0-2.0); EOSINOPHILS # 0.1 10^3/ul (0.0-0.5); EOSINOPHILS % 1.7 % (0.0-7.0); HEMATOCRIT 32.8 % (37.0-47.0); HEMOGLOBIN 10.4 g/dl (12.0-16.0); LYMPHOCYTES # 2.3 10^3/ul (0.8-2.9); LYMPHOCYTES % 33.9 % (15.0-51.0); MEAN CORPUSCULAR HEMOGLOBIN 26.4 pg (29.0-33.0); MEAN CORPUSCULAR HGB CONC 31.7 g/dl (32.0-37.0); MEAN CORPUSCULAR VOLUME 83.2 fl (82.0-101.0); MONOCYTE # 0.6 10^3/ul (0.3-0.9); MONOCYTES % 8.4 % (0.0-11.0); NEUTROPHIL # 3.8 10^3/ul (1.6-7.5); PLATELET COUNT 253 10^3/UL (140-415); RED BLOOD COUNT 3.94 10^6/ul (4.20-5.40)
[2018-08-17 12:37] LABS: WHITE BLOOD COUNT 6.9 10^3/ul (4.8-10.8)
[2018-08-17 12:55] LABS: ANION GAP 15 (5-13); BLOOD UREA NITROGEN 21 mg/dl (7-20); CALCIUM 9.5 mg/dl (8.4-10.2); CARBON DIOXIDE 22 mmol/L (21-31); CHLORIDE 103 mmol/L (97-110); CREATININE 1.47 mg/dl (0.44-1.00); Estimated GFR 44 mL/min (>60); GLUCOSE 131 mg/dl (70-220); SODIUM 140 mmol/L (135-144)
[2018-08-17 13:07] LABS: TROPONIN-I < 0.012 ng/ml (0.000-0.120)
[2018-08-17 14:03] LABS: ADD UMIC NO; UR ASCORBIC ACID NEGATIVE (NEGATIVE); UR BILIRUBIN (Dip) NEGATIVE (NEGATIVE); UR BLOOD (Dip) NEGATIVE (NEGATIVE); UR CLARITY CLEAR (CLEAR); UR COLOR YELLOW (YELLOW); UR GLUCOSE (Dip) NEGATIVE (NEGATIVE); UR KETONES (Dip) NEGATIVE (NEGATIVE); UR LEUKOCYTE ESTERASE (Dip) NEGATIVE Leu/ul (NEGATIVE); UR NITRITE (Dip) NEGATIVE (NEGATIVE); UR SPECIFIC GRAVITY (Dip) 1.012 (1.003-1.030); UR TOTAL PROTEIN (Dip) NEGATIVE (NEGATIVE); UR UROBILINOGEN (Dip) NEGATIVE (NEGATIVE)
[2018-08-17] MEDS: HYDROCODONE/APAP (5/325) TAB PO (14:33)
== END 2018-08-17 17:21 | disposition home or self-care (01) ==
LOC: E/R 11:06
DX: I95.9 Hypotension, unspecified (principal); E11.22 Type 2 diabetes mellitus with diabetic chronic kidney disease; N18.9 Chronic kidney disease, unspecified; D63.1 Anemia in chronic kidney disease; F17.210 Nicotine dependence, cigarettes, uncomplicated; Z79.82 Long term (current) use of aspirin; Z86.73 Personal history of transient ischemic attack (TIA), and cerebral infarction without residual deficits
CPT/HCPCS: 36415; 71045; 80048; 81003; 84484; 85025; 93005; 99285-25